=== PATIENT | female | born 1950 | race Caucasian/White ===

== ENCOUNTER → 2017-10-07 | Outpatient (CLI) | payer OTHER, BC ==
[~2017-10-07] VITALS: Ht 157.5 cm; Wt 79.4 kg
[~2017-10-07] MED LIST: CETIRIZINE HCL10 MG PO; COLESTIPOL HCL1 G1 PO; DOXYCYCLINE 10100 MG PO; FLONASE 0.05%50 MCG NASAL; IBUPROFEN 200200 M1 PO; MOBIC7.5 MG PO; OMEPRAZOLE40 MG PO; PREDNISONE 10 M10 MG PO; RANITIDINE HCL300 MG PO; SINGULAIR 10 MG10 M1 PO; TRAMADOL 50 MG50 MG PO; VOLTAREN GEL 1100 G2 TOP; ZANAFLEX4 MG PO
--- NOTE | ~2017-10-07 | HPC ---
[facility] [place] [address] PAIN MANAGEMENT CONSULTATION Name: RXO REESE Room #: REG [facility].#: [id number] Admission: 10/07/17 Attend Phys: Aaliyah Hutton MD Discharge: Date of : 50 Report #: [id number] THIS REPORT FOR: //name// CC: Aaliyah Aquino DATE OF SERVICE: 10/07/2017 CHIEF COMPLAINT: Pain in the left sciatic area. HISTORY OF PRESENT ILLNESS: The patient is a 67-year-old female who has been referred to the pain clinic for evaluation. The patient notes that she has had some worsening of pain since August. It involves her left sciatic area. Notes that the pain is made worse with walking, sitting, bending and walking up and down stairs. Some improvement has been gained with rest. Use of a heating pad has been somewhat efficacious. She does take a nonsteroidal medication Advil. She describes it as continuous, steady, constant, shooting, stabbing and rates it as an 8-9 depending on the level of activity and on the date. She denies any bowel or bladder changes. She has had a history of acute bursitis involving her hip. She also notes some pain in the area of the iliotibial band. She has undergone physical therapy on numerous occasions. Does continue to try to exercise and stretching, but have to no avail. She feels like she pulled her left sciatic nerve during a warmup while stretching on 08/26/2017. ALLERGIES: PENICILLIN. MEDICATIONS: Current medication regimen, omeprazole 40 mg daily, ranitidine 300 mg daily, Voltaren gel 1% topical 4 times daily to the upper extremity, prednisone 10 mg tablets. PAST MEDICAL HISTORY: Gallbladder disease, colon problems, stomach problems, joint disease and arthritis. PAST SURGICAL HISTORY: Appendectomy in 1978, cholecystectomy in 1982, tubal ligation in 1981, right shoulder surgery in 1998, left knee scope in 2011, right knee scope in 2013, pregnancies x 2, 1978 and 1981. 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 She feels that she is still recovering from surgeries and scopes regarding her knee in the past. LABORATORY DATA: No laboratory values available at the time of our interview. REVIEW OF SYSTEMS: Questionnaire in the chart indicates some weight change associated with exercise, headaches, has a sinus infection, wears glasses, ringing in the ears, seasonal rhinitis, varicose [place] [address] PAIN MANAGEMENT CONSULTATION Name: ROX REESE Room #: REG CL Mayra#: [id number] Admission: 10/07/17 Attend Phys: Aaliyah Hutton MD Discharge: Date of : 50 Report #: [id number] PAIN CLINIC ASSESSMENT: 1. History of osteoarthritis and rheumatoid arthritis. 2. Height 5 feet 2 inches. 3. Weight 175 pounds, BMI is 32. 4. Vital signs, blood pressure 145/82, pulse 72, respiratory rate 16, room air saturation 98%. 5. Pain intensity, 8-9. 6. Fall risk, the patient has not fallen in the last 3 months. She does not appear to be a fall risk. 7. The patient is not on blood thinners. 8. The patient is not being treated for hypertension. 9. The patient is not on opioid therapy for greater than 6 weeks. 10. Risk assessment tool. 11. Functional assessment tool rates 48/70 in regard to general activity, mood, walking ability, work, relationships with others, sleep, enjoyment of life functional assessment tool. 12. Recreational drugs, does not use recreational drugs. 13. Tobacco, never smoked cigarettes. 14. Alcohol use, does not use alcohol. PHYSICAL EXAMINATION: GENERAL: The patient is a well-developed female who appears her stated age. ORIENTATION: The patient is alert and oriented x 3. AFFECT: Affect is appropriate. HEENT: The patient is normocephalic, atraumatic. Extraocular eye muscles intact. Normal hearing. No significant nasal problem, but does complain of sinusitis and is taking medications for this. Buccal membranes are moist. NECK: Without adenopathy or bruits. LUNGS: Clear to auscultation. HEART: Regular rate. ABDOMEN: Nontender. MUSCULOSKELETAL: Normal alignment without scoliosis, kyphosis, lordosis. Lumbar flexion to 45 degrees. Lumbar extension, left and right lateral rotation, left and right lateral bending were not very problematic, but the patient does complain of some increased discomfort in the left sciatic outflow tract area. Deep tendon reflexes are +1 for the biceps bilaterally. Difficult to appreciate triceps or brachioradialis muscle groups, 5/5 in the upper extremities. Muscle strength is judged to be 5/5 in the lower extremities. The patient complains of pain and discomfort in the left buttocks area with some pain radiating down into her leg. Impression, L5-S1 lumbar radicular pain radiating down into the left leg. The patient has had sciatic nerve issues in the past and feels that this is similar to that which she had on the right before. IMPRESSION: [facility] [address] [place] [address] PAIN MANAGEMENT CONSULTATION Name: ROX REESE Room #: REG CLI Familia#: [id number] Admission: 10/07/17 Attend Phys: Aaliyah Hutton MD Discharge: Date of : 50 Report #: [id number] 1. Exacerbation of left sciatic nerve. 2. Positive for nasal congestion and sinusitis. RECOMMENDATIONS: We discussed treatment options with the patient. At this juncture, we will provide her with meloxicam 7.5 mg 1 p.o. daily. She will return to the pain clinic with the possibility of epidural steroid injection in the future. Hopefully, her sinusitis has cleared up and is not problematic. We would like to thank you for letting us participate in her care. We hope she continues to improve. <ELECTRONICALLY SIGNED> By: Aaliyah Hutton MD 11/02/17 1426 [id number] Aaliyah Hutton MD /nt
[2017-10-07 11:09] VITALS: BP 145/82
== END ==
LOC: PAIN 10:01
DX: M54.32 Sciatica, left side (principal); J32.9 Chronic sinusitis, unspecified; M19.90 Unspecified osteoarthritis, unspecified site; Z88.0 Allergy status to penicillin

== ENCOUNTER → 2017-11-23 | Outpatient (CLI) | payer OTHER, BC ==
[~2017-11-23] VITALS: Ht 157.5 cm; Wt 82.6 kg
[~2017-11-23] MED LIST changes: -CETIRIZINE HCL10 MG PO; -FLONASE 0.05%50 MCG NASAL; -SINGULAIR 10 MG10 M1 PO; -ZANAFLEX4 MG PO
--- NOTE | ~2017-11-23 | HPC ---
[facility] [place] [address] PAIN MANAGEMENT CONSULTATION Name: ROX REESE Room #: REG [facility].#: [id number] Admission: 11/23/17 Attend Phys: Aaliyah Hutton MD Discharge: Date of : 50 Report #: [id number] THIS REPORT FOR: //name// CC: Aaliyah Aquino MD DATE OF SERVICE: 11/23/2017 FOLLOWUP COMPLAINT: Here for epidural steroid injection. FOLLOWUP HISTORY: The patient is a 67-year-old female who has been seen in the Pain Clinic because of pain and discomfort involving her low back with pain radiating down into her leg. She has a history of left sciatic area pain. Notes that the pain has been problematic with walking, sitting, standing, bending, and going up and down stairs. She has been seen in the Pain Clinic and has returned today given a precertification by her insurance company to undergo an epidural steroid injection. She rates her pain as a 4-5/10. She was suffering from a sinus infection at the last visit. It seems that this has improved and she has returned for an injection. ALLERGIES: PENICILLIN. CURRENT MEDICATIONS: Omeprazole 40 mg daily, ranitidine 300 mg daily, Voltaren gel 1% 4 times a day in the upper extremities, prednisone 10 mg daily. PAIN CLINIC ASSESSMENT: 1. The patient is not being treated for osteoarthritis or rheumatoid arthritis on a regular basis. 2. Height 5 feet 2 inches, weight 182 pounds, BMI is 33. 3. Vital signs: Blood pressure 110/77, pulse 81, respiratory rate 16, room air saturation 97%. 4. Pain intensity: 4/10. 5. Fall risk: The patient has not fallen in the last 3 months. 6. Blood thinner: The patient is not on a blood thinner 7. History of hypertension: The patient is not being treated for hypertension. 8. Opioid therapy: The patient is not receiving opioid medication on a regular basis. 9. Risk assessment tool. 10. Functional assessment. 11. Recreational drug use: The patient has never used recreational drugs. 12. Tobacco: The patient has never smoked. 13. Alcohol use: The patient denies use of alcoholic beverages. PHYSICAL EXAMINATION: GENERAL: The patient is a well-developed, white female. She appears her stated [place] [id number] PAIN MANAGEMENT CONSULTATION Name: ROX REESE Room #: REG [facility]#: [id number] Admission: 11/23/17 Attend Phys: Aaliyah Hutton MD Discharge: Date of : 50 Report #: [id number] age. She is alert and oriented x3. Speech is fluent. HEENT: Normocephalic, atraumatic. Extraocular eye muscles intact. Hearing is within normal limits. Sclerae are normal. Mucous membranes are moist. NECK: Without adenopathy or bruits. CHEST: Clears to auscultation. HEART: Regular rate. ABDOMEN: Nontender. MUSCULOSKELETAL: The patient has normal alignment without significant kyphosis, scoliosis or lordosis. Flexion is to 45 degrees. Lumbar extension, left and right lateral rotation, left and right lateral bending were not very problematic, but the patient did have some increased discomfort in the left sciatic outflow tract with these maneuvers. Deep tendon reflex is +1 for the biceps bilaterally in the upper extremities. Muscle strength is noted to be 5/5 in the upper muscle areas. Lower muscle strength indicates 5/5 muscle strength. The patient does have some pain and discomfort in the left buttocks and some pain radiating down into her leg. L5-S1 radicular pain is noted in the left leg. She has had sciatic problem in the past and states that this is commensurate with that. IMPRESSION: 1. History of left sciatic pain. 2. Positive nasal congestion and sinusitis. RECOMMENDATION: The patient has completed her therapy for sinusitis. She feels that things are going reasonably well now and is not having problems with sinusitis. She would like to proceed with an epidural steroid injection today. RECOMMENDATIONS: We discussed treatment options with the patient. They include but are not limited to infection, increased muscle soreness, headache, bleeding, nerve trauma, spinal headache. The patient elects to proceed. PROCEDURE NOTE: The patient was placed in the prone position. Fluoroscopy was used to identify the L5-S1 interspace. This area had been sterilely prepped with Betadine and infiltrated with 0.25% bupivacaine. A fluoroscopy using anterior, posterior as well as lateral viewing was used. The trigger point area or the target area was identified. This area had been sterilely prepped with Betadine and infiltrated with 0.25% bupivacaine. Total of 80 mg Depo-Medrol, 40 mg triamcinolone, and 2 mL of 0.25% bupivacaine was injected. The patient tolerated the procedure well. There were no complications. She rates her pain as a 2 to 3 at the time of discharge, down from 5 at the beginning. She will follow up in the future as needed. A total of 8 seconds fluoroscopy time was used. [address] [address] PAIN MANAGEMENT CONSULTATION Name: ROX REESE Room #: REG [facility]#: [id number] Admission: 11/23/17 Attend Phys: Aaliyah Hutton MD Discharge: Date of : 50 Report #: [id number] We would like to thank you for letting us participate in her care. We hope she continues to improve. By: [id number] Aaliyah Hutton MD /beto
[2017-11-23 10:45] VITALS: BP 110/77
== END | disposition home or self-care (01) ==
LOC: PAIN 06:57
DX: M54.16 Radiculopathy, lumbar region (principal); G89.29 Other chronic pain; J32.9 Chronic sinusitis, unspecified; Z88.0 Allergy status to penicillin; Z79.899 Other long term (current) drug therapy

== ENCOUNTER 2018-10-01 13:16 | Emergency (ER) | payer OTHER, BC ==
[~2018-10-01] VITALS: Ht 157.5 cm; Wt 77.1 kg
[~2018-10-01 13:16] MED LIST changes: +CETIRIZINE HCL10 MG PO; +FLONASE 0.05%50 MCG NASAL; +SINGULAIR 10 MG10 M1 PO; +ZANAFLEX4 MG PO
[2018-10-01 13:17] VITALS: BP 145/77
[2018-10-01] MEDS ORDERED: DOXYCYCLINE 10100 MG PO (14:13)
== END 2018-10-01 14:20 | disposition home or self-care (01) ==
LOC: ER 13:16
DX: J02.9 Acute pharyngitis, unspecified (principal); R09.81 Nasal congestion; Z88.0 Allergy status to penicillin; Z90.49 Acquired absence of other specified parts of digestive tract; Z98.890 Other specified postprocedural states

== ENCOUNTER → 2021-08-26 | Outpatient (CLI) | payer OTHER, BC ==
[~2021-08-26] VITALS: Ht 157.5 cm; Wt 77.2 kg
[~2021-08-26] MED LIST changes: +ALLEGRA ALLERG180 MG PO; +AZELASTINE205.5 MCG/ NARES; +B COMPLEX1 EACH PO; +FISH OIL 1,0001 EAC9 PO; +VITAMIN C500 M1 PO; +VITAMIN D31250 MC1 PO
[2021-08-26 10:49] VITALS: BP 132/78
--- NOTE | 2021-08-26 11:33 | NUR ---
Pain Clinic Assessment: 1. History of Osteoarthritis: KNEES AND SHOULDERS History of Rheumatoid Arthritis: 2. Height: 5 ft. 2 in. 157.5 cm. Weight: 170.2 lb. oz. 77.202 kg. Patient's BMI: 31.1 3. Vital Signs: BP: 132/78 Pulse: 77 Resp: 18 Temp: 02 Sat: 100 ECG Mon: 4. Pain Intensity: 6 5. Fall Risk: Dizziness: N Needs help standing or walking: N Fallen in the last 3 months: N Fall risk comments: 6. Patient on Blood Thinner: None 7. History of Hypertension: N 8. Opioid Therapy greater than 6 weeks: N Opiate Contract Signed: 9. Risk Assessment Tool Provided: 10. Functional Assessment Tool: 11. Recreational Drug Use: Never Drug Type: Tobacco Use: Never Smoker Tobacco Type: Amount or Packs/day: How Many Years: Alcohol Use: No Frequency: Quant:
== END | disposition home or self-care (01) ==
LOC: PAIN 10:13
PROVIDERS: ATTEND Anesthesiology Pain Medicine
DX: M54.16 Radiculopathy, lumbar region (principal); G89.29 Other chronic pain; M54.81 Occipital neuralgia; M19.90 Unspecified osteoarthritis, unspecified site; Z98.890 Other specified postprocedural states; Z90.49 Acquired absence of other specified parts of digestive tract; Z98.51 Tubal ligation status; Z79.899 Other long term (current) drug therapy; Z88.0 Allergy status to penicillin